=== PATIENT | female | born 1950 | race Caucasian/White ===

== ENCOUNTER 2019-09-30 08:42 | Inpatient (IN) ==
[2019-09-30] MEDS ORDERED: DUONEB (A & A) INH ONE ×2 (09:19)
[2019-09-30] MEDS ORDERED: SOLU-MEDROL IV ONE (09:19)
[2019-09-30 09:23] LABS: BLOOD TYPE ARTERIAL; HCO3-(ACT) 19.2 mmoll (20.0-26.0); METHB 1.3 % (0.0-1.5); O2(CT) 17.9 mL/dL (15.0-23.0); PCO2(98.6) 37 mmHg (35-45); PO2(98.6) 54 mmHg (60-100); SAMPLE BLOOD; SAO2 92.2 % (95.0-100.0); THB 14.3 g/dL (11.5-17.4); pH(98.6) 7.31 (7.35-7.45)
[2019-09-30 09:35] LABS: MODALITY ROOM AIR
[2019-09-30 09:36] LABS: ALLEN TEST NO
[2019-09-30 09:41] LABS: BASO# 0.01 X1000 (0.0-0.2); BASO% 0.1 % (0.0-0.8); HEMATOCRIT 42.5 % (37.0-47.0); HEMOGLOBIN 13.3 g/dL (12.0-16.0); IMM GRAN# 0.01 X1000 (0.0-0.04); IMM GRAN% 0.1 % (0.0-0.5); LYMPH# 0.17 X1000 (1.2-3.4); LYMPH% 2.2 % (20.5-51.1); MCH 27.4 PG (27-31); MCHC 31.3 g/dL (33-37); MCV 87.4 FL (81-99); MONO# 0.48 X1000 (0.11-0.59); MONO% 6.2 % (1.7-9.3); MPV 9.2 FL (7.4-10.4); NEUT# 7.06 X1000 (1.4-6.5); NEUT% 91.4 % (42.2-75.2); PLT 202 X1000 (130-400); RBC 4.86 XMIL (4.2-5.4); RDW 14.5 % (11.5-14.5); WBC 7.73 X1000 (4.8-10.8)
--- NOTE | 2019-09-30 09:46 | PROVIDER DOCUMENTATION ---
HPI-Respiratory General - General Chief Complaint: SEPSIS ALERT - P Stated Complaint: SOB/ COUGH/HEADACHE Time Seen by Provider: 09/30/19 09:01 Source: patient Allergies/Adverse Reactions: Patient Allergies Allergy/AdvReac Type Severity Reaction Status Date / Time Penicillins Allergy HIVES Verified 09/30/19 08:51 Home Medications: Home Medication List Medication Instructions Recorded Confirmed Last Taken Type Naratriptan [Amerge] 2.5 mg PO DAILY 12/09/17 12/09/17 Unknown History Rizatriptan Benzoate [Rizatriptan] 10 mg PO DIRECTED PRN 12/09/17 12/17/17 Unknown History Simvastatin 10 mg PO HS 12/09/17 12/09/17 Unknown History Verapamil HCl [Verapamil ER] 180 mg PO DAILY 12/09/17 12/09/17 Unknown History Topiramate [Topiramate ER] 100 mg PO DAILY 12/10/17 12/10/17 Unknown History Albuterol 2.5MG/Ipratrop 0.5MG 3 ml INH Q6H #120 neb 12/18/17 Unknown Rx [Duoneb (A & A)] CefDINIR [Omnicef] 300 mg PO BID #14 cap 12/18/17 Unknown Rx Nicotine Patch [Nicoderm Patch] 7 mg TD DAILY #21 patch.td24 12/18/17 Unknown Rx Nicotine Patch [Nicoderm Patch] 14 mg TD DAILY #21 patch.td24 12/18/17 Unknown Rx Nicotine Patch [Nicoderm Patch] 21 mg TD DAILY patch.td24 12/18/17 Unknown Rx Prednisone 10 mg PO DAILY #30 tab 12/18/17 Unknown Rx Promethazine HCl/Codeine 5 ml PO Q6-8H PRN PRN #120 ml 09/14/19 Unknown Rx [Promethazine-Codeine Syrup] - History of Present Illness-Resp Nature of Presenting Problem: Patient is a 68 yobf who complains of SOB, wheezing, and a non-productive cough x 2 days. Denies fever or any other complaints. Review of Systems - Adult - REVIEW OF SYSTEMS - ADULT Constitutional: reports: no symptoms reported. denies: chills, fever Eyes: reports: no symptoms reported Ears, Nose, Mouth & Throat: reports: no symptoms reported Cardiovascular: reports: no symptoms reported Respiratory: reports: see HPI Gastrointestinal: reports: no symptoms reported Genitourinary: reports: no symptoms reported Musculoskeletal: reports: no symptoms reported Integumentary: reports: no symptoms reported Neurological: reports: no symptoms reported Psychiatric: reports: no symptoms reported Endocrine: reports: no symptoms reported Hematologic/Lymphatic: reports: no symptoms reported Allergic/Immunologic: reports: no symptoms reported All Other Systems: Reviewed and Negative Past History - Adult - PAST MEDICAL HISTORY-ADULT Review of Records: reports: Old Records Reviewed, Nursing Assessment Review, Medications Reviewed Major Childhood Illnesses: reports: denies history Cardiovascular: reports: HTN, hyperlipidemia Respiratory: reports: COPD Gastrointestinal: reports: denies history Obstetrical/Gynecological: reports: denies history Genitourinary: reports: denies history Musculoskeletal: reports: denies history Neurological: reports: headaches/migraines Psychiatric: reports: denies history Endocrine/Immune: reports: denies history Other Conditions: reports: denies history - PRIOR SURGERIES/PROCEDURES Surgical/Procedure History: reports: reviewed, not pertinent, hysterectomy - IMMUNIZATION STATUS Childhood Immunizations: See Nurse Assessment Flu Vaccine: See Nurse Assessment - FAMILY HISTORY Family History: reviewed, not pertinent - SOCIAL HISTORY Smoking: non-smoker, quit greater than 1 year Physical Exam-General - PHYSICAL EXAM-ADULT Initial Vital Signs Reviewed: Yes - CONSTITUTIONAL General Appearance: alert, mild distress. negative: lethargic, slow to respond - EYES Eyes: PERRL/EOMI, pink conjunctivae. negative: sclera injected, scleral icterus, sunken eyes - HEAD, EARS, NOSE, MOUTH & THROAT HENMT: normocephalic/atraumatic, moist mucous membranes - NECK Neck: full range of motion, supple, normal inspection - RESPIRATORY Respiratory: chest non-tender, respiratory distress (mild), decreased breath sounds (Breath sounds moderately diminished bilaterally with expiratory wheezing noted diffusely), accessory muscle use, wheezing - CARDIOVASCULAR Cardiovascular: normal peripheral pulses, regular rate, rhythm, no edema, no gallop, no JVD, no murmur - GASTROINTESTINAL (ABDOMEN) Abdominal Exam: normal bowel sounds, non tender, soft - MUSCULOSKELETAL Back Exam: normal inspection Extremity: normal range of motion, non-tender, normal inspection - SKIN Integumentary: normal color, warm/dry. negative: cyanosis, diaphoresis, jaundice, mottled, pallor - NEUROLOGIC Neurologic: grossly normal, no motor/sensory deficits - PSYCHIATRIC Psych/Mental Status: normal mood/affect, normal thought content, normal thought process, oriented x 3 Progress - PLAN OF CARE/RESULTS Progress/Plan/Lab Results: Vital Signs - 8 hr 09/30/19 08:45 09/30/19 10:05 09/30/19 10:45 Temperature 97.8 F Pulse Rate 113 H 95 H Respiratory Rate 32 H 20 Blood Pressure 120/63 O2 Sat by Pulse Oximetry 89 L 93 L Laboratory Results - last 24 hr 09/30/19 09/30/19 09/30/19 09:09 09:09 09:09 WBC 7.73 RBC 4.86 Hgb 13.3 Hct 42.5 MCV 87.4 MCH 27.4 MCHC 31.3 L RDW Std Deviation 14.5 Plt Count 202 MPV 9.2 Immature Gran % (Auto) 0.1 Neut % (Auto) 91.4 H Lymph % (Auto) 2.2 L Rock % (Auto) 6.2 Eos % (Auto) 0.0 Baso % (Auto) 0.1 Immature Gran # (Auto) 0.01 Neut # (Auto) 7.06 H Lymph # (Auto) 0.17 L Rock # (Auto) 0.48 Eos # (Auto) 0.00 Baso # (Auto) 0.01 Segmented Neutrophils 91 H Lymphocytes 3 L Monocytes 6 Nucleated RBCs 1 H PT 13.2 INR 0.95 PTT (Actin FS) 28.0 Specimen Type Sample Site pH pCO2 pO2 HCO3 Base Excess Oxyhemoglobin ABG O2 Sat (Calculated) ABG O2 Saturation ABG Carboxyhemoglobin ABG Methemoglobin Steven Test A-a O2 Difference Total Hemoglobin Lactate Blood Gas Modality FiO2 % Sodium 140 Potassium 3.9 Chloride 109 H Carbon Dioxide 18 L Anion Gap 13 BUN 21 Creatinine 0.8 Estimated GFR/1.73 m2 > 60 BUN/Creatinine Ratio 26 Glucose 140 H Calculated Osmolality 285 Calcium 8.5 L Total Bilirubin 0.20 AST 21 ALT 16 Alkaline Phosphatase 109 H Creatine Kinase 211 H Creatine Kinase Index 1.4 CK-MB (CK-2) 3.05 Troponin T Yjo-O-Qqyqburzdny Pept Total Protein 6.7 Albumin 4.5 Globulin 2.0 Albumin/Globulin Ratio 2.0 09/30/19 09/30/19 09/30/19 09:09 09:09 09:13 WBC RBC Hgb Hct MCV MCH MCHC RDW Std Deviation Plt Count MPV Immature Gran % (Auto) Neut % (Auto) Lymph % (Auto) Rock % (Auto) Eos % (Auto) Baso % (Auto) Immature Gran # (Auto) Neut # (Auto) Lymph # (Auto) Rock # (Auto) Eos # (Auto) Baso # (Auto) Segmented Neutrophils Lymphocytes Monocytes Nucleated RBCs PT INR PTT (Actin FS) Specimen Type ARTERIAL Sample Site R BRACHIAL pH 7.31 L pCO2 37 pO2 54 L HCO3 19.2 L Base Excess -7.0 L Oxyhemoglobin 89.0 L* ABG O2 Sat (Calculated) 17.9 ABG O2 Saturation 92.2 L ABG Carboxyhemoglobin 2.10 ABG Methemoglobin 1.3 Steven Test NO A-a O2 Difference 49.0 Total Hemoglobin 14.3 Lactate 1.00 Blood Gas Modality ROOM AIR FiO2 % 21.0 Sodium Potassium Chloride Carbon Dioxide Anion Gap BUN Creatinine Estimated GFR/1.73 m2 BUN/Creatinine Ratio Glucose Calculated Osmolality Calcium Total Bilirubin AST ALT Alkaline Phosphatase Creatine Kinase Creatine Kinase Index CK-MB (CK-2) Troponin T < 0.010 Cax-O-Qnloquqhxph Pept 213 Total Protein Albumin Globulin Albumin/Globulin Ratio Orders Category Date Time Status Cardiac Monitoring DIRECTED Care 09/30/19 08:52 Active IV Insertion ORDERED Care 09/30/19 08:52 Completed Notify MD of + Sepsis Screen NOW Care 09/30/19 08:52 Active Notify Physician As Ordered Care 09/30/19 08:52 Active CHEST-1 VIEW [RAD] Stat Exams 09/30/19 08:52 Completed ABG [RESP] Routine Lab 09/30/19 09:13 Completed BLOOD CULTURE [BLDCUL] Stat Lab 09/30/19 09:15 Ordered BNP [PRO B-NATRIURETIC PEPTIDE] Stat Lab 09/30/19 09:09 Completed CBC WITH DIFF [HEME] Stat Lab 09/30/19 09:09 Completed CK PROFILE [SP CHEM] Stat Lab 09/30/19 09:09 Completed COMPREHENSIVE METABOLIC PANEL [CHEM] Stat Lab 09/30/19 09:09 Completed Flu [INFLUENZA SCREEN PL] Stat Lab 09/30/19 12:20 Uncollected LACTATE, PLASMA [CHEM] Lab 09/30/19 12:00 Uncollected LACTATE, PLASMA [CHEM] Lab 09/30/19 15:00 Uncollected LACTATE, PLASMA [CHEM] Q3H Lab 09/30/19 09:15 Ordered PROTIME WITH INR [COAG] Stat Lab 09/30/19 09:09 Completed PTT [COAG] Stat Lab 09/30/19 09:09 Completed TROPONIN T Stat Lab 09/30/19 09:09 Completed Albuterol 2.5MG/Ipratrop 0.5MG [Duoneb (A & A)] Med 09/30/19 09:19 Discontinued 3 ml INH NOW ONE Albuterol 2.5MG/Ipratrop 0.5MG [Duoneb (A & A)] Med 09/30/19 09:19 Discont inued 3 ml INH NOW ONE Furosemide [Lasix] Med 09/30/19 10:35 Discontinued 40 mg IV NOW ONE Methylprednisolone Sod Succ [Solu-Medrol] Med 09/30/19 09:19 Discontinued 125 mg IV NOW ONE Ondansetron [Zofran] Med 09/30/19 10:04 Discontinued 4 mg IV NOW ONE Aerosol Treatments Routine Oth 09/30/19 09:19 Completed Aerosol Treatments Routine Oth 09/30/19 09:19 Completed Aerosol Treatments Stat Oth 09/30/19 09:19 Completed Aerosol Treatments Stat Oth 09/30/19 09:19 Completed Oxygen Device Stat Oth 09/30/19 08:52 Active EKG [EKG] Stat Ther 09/30/19 08:52 Draft Result Diagrams: 09/30/19 09:09 09/30/19 09:09 - REASSESSMENT Reassessment #1 Time Reassessed: 12:13 Status: other (Pt states she is feeling mildly better, removed O2 and sat dropped to 88% on room air. Admitting paged. Pt in agreement with admission plan.) - XRAY 1 XRAY Study: Chest ([facility] - [address] , [address], [place] [address] [facility] - [address] [place] [address] Department of Imaging Patient: BERTRAND PAREDES Date: 09/30/19MR#: [id number] : 1ADM Status: REG [facility]#: [id number] Age/Sex: 68/FRoom/Bed: Loc: P.ED Ordering Physician: Sherman Canales MD Family Physician: Marisa Black MD Reason for Procedure: sob ___ Signed EXAM: CHEST-1 VIEW HISTORY: sob TECHNIQUE: Single view COMPARISON: 09/14/2019 FINDINGS: The lungs are hyperexpanded. The heart is not enlarged. The vessels are mildly distended. There are no infiltrates. No effusion identified. There are scattered granuloma. Moderate scoliosis. IMPR ESSION: Emphysema with mild pulmonary edema Electronically signed by Kelvin Santiago 09/30/2019 9:58 AM 09/30/19 0958 Interpreting Physician: Kelvin Santiago MD Dictated Date/Time: 09/30/19 0957 cc: Sherman Canales MD; Marisa Black MD) - CONSULTS/PCP/HOSPITALIST Notification #1 *Consult/PCP/Hospitalist*: Dr. Bennett Time Discussed: 12:22 Reason/Comments: admission- COPD exacerbation Consult Disposition: Admit Departure - Departure Date of Disposition Decision: 09/30/19 Time of Disposition Decision: 12:23 DIAGNOSIS: COPD exacerbation Disposition: ADMITTED INPATIENT 09 Certified Medical Emergency: Emergent Condition: Stable Referrals and Follow-Ups: Marisa lBack MD [Primary Care Provider] - - Critical Care Note This patient required my direct & personal management of CC.: No Attestation - Physician/ GAVIN Attestation Patient care was provided by Advanced Practice Provider:: Yes Advanced Practice Provider:: Bala Falk Advanced Practice Provider documentation review:: The Mid-level provider documentation, treatment plan and medical decision making was reviewed by the physician who agrees with all treatment and medical decision making by the MLP. The physician spent face to face time with patient:: No Advanced Practice Provider documentation review:: Supervising physician onsite and consulted in the evaluation and care of this patient. The physician did not have a face to face encounter with the patient.
--- NOTE | 2019-09-30 09:54 | EKG Report ---
Test Performed on : 09/30/2019 09:01:08 AM Test Reason : sob Blood Pressure : / mmHG Vent. Rate : 103 BPM Atrial Rate : 103 BPM P-R Int : 140 ms QRS Dur : 076 ms QT Int : 332 ms P-R-T Axes : 076 027 254 degrees QTc Int : 434 ms Sinus tachycardia. Low voltage QRS ST & T wave abnormality, consider inferolateral ischemia Abnormal ECG When compared with ECG of 09-DEC-2017 12:20, Minimal criteria for Inferior infarct are no longer present QT has shortened Unconfirmed Result
[2019-09-30 09:57] LABS: AGAP 13; ALBUMIN 4.5 g/dL (3.5-5.0); ALKALINE PHOSPHATASE 109 U/L (32-104); BUN 21 mg/dL (8-22); CALCIUM 8.5 mg/dL (8.8-10.2); CHLORIDE 109 mmol/L (98-107); COSMO 285; CREATININE 0.8 mg/dL (0.5-0.9); ESTIMATED GFR > 60; GLUCOSE 140 mg/dL (70-104); GOT 21 U/L (10-30); GPT 16 U/L (10-36); POTASSIUM 3.9 mmol/L (3.5-5.1); SODIUM 140 mmol/L (136-145); TCO2 18 mmol/L (25-35); TOTAL PROTEIN 6.7 g/dL (6.3-8.3)
--- NOTE | 2019-09-30 09:58 | ED EKG INTERP ---
This chart was entered by Yanet Cruz Scribe, acting as scribe for Sherman Canales MD. EKG Interpretation - EKG Time of EKG reading by physician:: 09:01 EKG Read and Signed by:: Sherman Canales EKG Interpretation (*Must complete 3 of following elements*): Abnormal Rate: 103 Rhythm: sinus tachycardia [place]: normal QRS: other (low voltage qrs) ME Interval: normal Comments: st and t wave abnormality, consider inferolatera ischemia Attestation - Physician/ GAVIN Attestation Patient care was provided by Advanced Practice Provider:: Yes Advanced Practice Provider documentation review:: The Mid-level provider documentation, treatment plan and medical decision making was reviewed by the physician who agrees with all treatment and medical decision making by the MLP. The physician spent face to face time with patient:: No Advanced Practice Provider documentation review:: Supervising physician onsite and consulted in the evaluation and care of this patient. The physician did not have a face to face encounter with the patient. This chart was documented by the indicated scribe, (Yanet Cruz Scribe) and accurately reflects the services I performed and decisions made by me, Sherman Canales MD, as attested by the provider's signature.
[2019-09-30 09:59] LABS: CK PROFILE 211 U/L (24-173)
--- NOTE | 2019-09-30 10:00 | Diag Imaging Result Doc PS360 ---
EXAM: CHEST-1 VIEW HISTORY: sob TECHNIQUE: Single view COMPARISON: 09/14/2019 FINDINGS: The lungs are hyperexpanded. The heart is not enlarged. The vessels are mildly distended. There are no infiltrates. No effusion identified. There are scattered granuloma. Moderate scoliosis. IMPRESSION: Emphysema with mild pulmonary edema Electronically signed by Kelvin Santiago 09/30/2019 9:58 AM
[2019-09-30] MEDS ORDERED: ZOFRAN IV ONE (10:04)
[2019-09-30 10:06] LABS: INR 0.95; PROTIME 13.2 Seconds (11.0-16.0)
[2019-09-30 10:33] LABS: CK INDEX 1.4 (0.0-2.5); CK-MB 3.05 ng/mL (0.0-5.0)
[2019-09-30] MEDS ORDERED: LASIX IV ONE (10:35)
[2019-09-30 11:08] LABS: LYMPHS 3 % (21-51); MONO 6 % (1-9); NRBC 1 % (0-0); SEGS 91 % (42-75)
[2019-09-30] MEDS ORDERED: TYLENOL PO PRN (12:23)
[2019-09-30] MEDS ORDERED: ZOFRAN IV PRN ×2 (12:23→13:45)
[2019-09-30 12:53] LABS: INFLUENZA A POSITIVE (NEGATIVE); INFLUENZA B NEGATIVE (NEGATIVE)
[2019-09-30] MEDS: ZITHROMAX 500 MG/NS 500 MG/250 ML IVPB IV SCH (13:28)
--- NOTE | 2019-09-30 13:44 | HISTORY AND PHYSICAL ---
PRIMARY CARE PHYSICIAN: Dr. Marisa Black. CHIEF COMPLAINT: Shortness of breath, wheezing, and a nonproductive cough for the past 2 days that has progressively worsened. HISTORY OF PRESENTING ILLNESS: This is a 68-year-old, -[place] female who presents to [facility] ER with a 2-day history of shortness of breath, wheezing, and a nonproductive cough. When she arrived, she had an O2 saturation of 89% on room air. ABG showed a pH of 7.31, pCO2 of 37, PO2 of 54, bicarb 19.2, and this was on room air. Her influenza A was positive. Influenza B was negative. Chest x-ray showed emphysema with mild pulmonary edema. EKG showed sinus tachycardia at 103. She will be admitted for further evaluation and treatment. PAST MEDICAL HISTORY: COPD, asthma, hypertension, and migraine. PAST SURGICAL HISTORY: Hysterectomy. FAMILY HISTORY: Reviewed and noncontributory. SOCIAL HISTORY: She currently lives with family. Quit smoking 2 years ago but was a pack a day smoker for 40+ years at that point. Denied any alcohol or illicit drug use. ALLERGIES: Penicillin. HOME MEDICATIONS: Will need to be updated and confirmed, and restarted when appropriate. We will place an order for nursing to update and confirm home medications. LABORATORY DATA: Showed a white blood cell count of 7.73, hemoglobin 13.3, hematocrit 42.5, platelets 202,000. PT and INR of 13.2 and 0.95. ABG with a pH of 7.31, pCO2 of 37, PO2 of 54, bicarb 19.2, and this was on room air. Sodium 140, potassium 3.9, chloride 109, CO2 of 18, BUN of 21, creatinine 0.8, glucose 140. Creatine kinase of 211, CK-MB 3.05, troponin was negative at 0.010. ProBNP of 213. Influenza A was positive. Influenza B was negative. Chest x-ray showed emphysema with mild pulmonary edema. EKG showed sinus tachycardia at 103. REVIEW OF SYSTEMS: She denied any fever, chills, blurred vision, dizziness, chest pain. She has had a nonproductive cough, shortness of breath, wheezing. Denied any abdominal pain, constipation, diarrhea, or burning or hurting with urination. PHYSICAL EXAMINATION: VITAL SIGNS: On arrival, she had a temperature of 97.8 degrees, pulse 113, respirations 32, blood pressure 120/63, saturating 89% on room air. Currently saturating 93% on 2 L. GENERAL: This is a 68-year-old, -[place] female who is sitting on the side of the bed and answers questions appropriately. HEENT: Normocephalic, atraumatic. Normal ENT inspection. Oropharynx and nares are clear. Eyes: Pupils are equal, round, and reactive to light and accommodation. Extraocular movements are intact. NECK: Normal inspection. Normal range of motion. LUNGS: With decreased breath sounds and some minimal expiratory wheezing throughout entire posterior lung corral. Equal lung expansion and chest wall movement noted. O2 via nasal cannula currently in use. HEART: Regular rate and rhythm. No murmurs, rubs, or gallops. ABDOMEN: Soft, nontender, nondistended. Bowel sounds are present x4 quadrants. MUSCULOSKELETAL: She had 5/5 strength x4 extremities. NEUROLOGICAL: The cranial nerves 2-12 appear grossly intact. ASSESSMENT: 1. An acute chronic obstructive pulmonary disease exacerbation. 2. Acute respiratory failure. 3. Influenza A positive. PLAN: She will be admitted to the medical unit. Placed on telemetry, O2 per protocol. Healthy heart diet. We will obtain a sputum culture. Blood cultures x2 are pending. She will be on Solu- Medrol 40 mg IV q.12, DuoNebs q.4 hours, azithromycin 500 mg IV q.24, Tamiflu 75 mg p.o. b.i.d., healthy heart diet. Neurologic checks q.4 hours x24 hours. Update and confirm home medications. Further orders after seen by attending. Dictated by SUZANNE Ireland for Denton Bennett MD cc: SUZANNE Ireland MD Bernice Swain, MD
[2019-09-30] MEDS: TAMIFLU PO SCH ×2 (14:31→20:39)
[2019-09-30] MEDS: DUONEB (A & A) INH SCH ×3 (15:27→23:46)
[2019-09-30] MEDS ORDERED: DUONEB (A & A) INH SCH (15:30)
[2019-09-30] MEDS ORDERED: MAXALT MLT PO PRN (16:45)
--- NOTE | 2019-09-30 16:45 | EKG Report ---
Test Performed on : 09/30/2019 4:17:54 PM Test Reason : TELE CHANGE Blood Pressure : / mmHG Vent. Rate : 097 BPM Atrial Rate : 097 BPM P-R Int : 146 ms QRS Dur : 078 ms QT Int : 372 ms P-R-T Axes : 086 078 261 degrees QTc Int : 472 ms Normal sinus rhythm. ST & T wave abnormality, consider inferior ischemia ST & T wave abnormality, consider anterolateral ischemia Prolonged QT Abnormal ECG When compared with ECG of 30-SEP-2019 16:16, (Unconfirmed) fusion complexes are no longer present QT has shortened Confirmed by Orlando Talley MD ([id number]) on 10/07/2019 1:49:59 AM
[2019-09-30] MEDS: SOLU-MEDROL IV SCH (17:31)
--- NOTE | 2019-09-30 18:56 | PROGRESS NOTE ---
DATE: 09/30/2019 SUBJECTIVE: Patient has no major complaints. Blood pressure is 112/60, heart rate 87. This is a lady coming in for wheezing and shortness of breath. She was found to have a COPD exacerbation and she also is flu A positive. ASSESSMENT AND PLAN: The patient will be admitted for treatment, steroids, antibiotics, antivirals, and we will continue to follow. [id number] encounter note with Anabella Garcia. cc: Denton Bennett MD
[2019-09-30] MEDS: ZOCOR PO SCH (20:39)
[2019-09-30] MEDS ORDERED: SOLU-MEDROL IV SCH (21:00)
[2019-10-01] MEDS: ZITHROMAX 500 MG/NS 500 MG/250 ML IVPB IV SCH (01:30)
[2019-10-01] MEDS: DUONEB (A & A) INH SCH ×6 (04:00→23:43)
[2019-10-01] MEDS: SOLU-MEDROL IV SCH ×3 (04:08→19:03)
[2019-10-01 06:12] LABS: HEMATOCRIT 40.1 % (37.0-47.0); HEMOGLOBIN 12.8 g/dL (12.0-16.0); LYMPH# 0.57 X1000 (1.2-3.4); LYMPH% 9.5 % (20.5-51.1); MCH 27.6 PG (27-31); MCHC 31.9 g/dL (33-37); MCV 86.4 FL (81-99); MONO# 0.33 X1000 (0.11-0.59); MONO% 5.5 % (1.7-9.3); MPV 9.3 FL (7.4-10.4); NEUT# 5.07 X1000 (1.4-6.5); PLT 193 X1000 (130-400); RBC 4.64 XMIL (4.2-5.4); RDW 14.3 % (11.5-14.5); WBC 5.97 X1000 (4.8-10.8)
[2019-10-01 06:56] LABS: CALCIUM 8.2 mg/dL (8.8-10.2); CREATININE 1.1 mg/dL (0.5-0.9); POTASSIUM 3.2 mmol/L (3.5-5.1); TOTAL BILIRUBIN 0.2 mg/dL (0.20-1.00); TOTAL PROTEIN 6.7 g/dL (6.3-8.3)
[2019-10-01] MEDS: TAMIFLU PO SCH ×2 (10:00→21:00)
[2019-10-01] MEDS: NON-FORMULARY MED PO SCH (10:00)
[2019-10-01] MEDS: ISOPTIN SR PO SCH (10:00)
[2019-10-01] MEDS: TYLENOL PO PRN (10:01)
[2019-10-01] MEDS ORDERED: NS 1,000 ML IV ONE (10:34)
--- NOTE | 2019-10-01 12:19 | PROGRESS NOTE ---
DATE: 10/01/2019 SUBJECTIVE: Patient has no major complaints. OBJECTIVE: Vital signs: Blood pressure 104/55, heart rate of 90, respiratory rate 20, temperature 98.8 degrees, 95% on 2 L. Cardiovascular: Regular rate and rhythm. Pulmonary: Bilateral breath sounds clear to auscultation. Her wheezing has overall improved. Gastrointestinal: Soft, nontender, nondistended. Bowel sounds were positive. LABORATORY DATA: White count is 5, hemoglobin and hematocrit 12 and 40, platelets 193,000. Sodium 132, potassium 3.2, creatinine 1.1. Flu A was positive. PROBLEM LIST: 1. Chronic obstructive pulmonary disease exacerbation. We will continue breathing treatments. I am going to cut down on her steroids and we will monitor her. Continue breathing treatments. 2. Influenza A. She is currently on Tamiflu, will continue for a total of 5 days. 3. Hypokalemia. We will supplement and follow. DISPOSITION: I anticipate discharge hopefully tomorrow, kind of see how she does. cc: Denton Bennett MD
[2019-10-01] MEDS: ROCEPHIN 1 GM in NS 50 ML IV SCH (16:26)
[2019-10-01] MEDS ORDERED: VANCOMYCIN IV PER PHARMACY MISC SCH (19:45)
[2019-10-01] MEDS ORDERED: VANCOMYCIN 1 GM/NS 1 GM/250 ML IVPB IV ONE (21:00)
[2019-10-01] MEDS: ZOCOR PO SCH (21:00)
[2019-10-01] MEDS ORDERED: VANCOMYCIN 500 MG/NS 500 MG/100 ML IVPB IV ONE (22:00)
[2019-10-02] MEDS: SOLU-MEDROL IV SCH ×3 (02:18→14:38)
[2019-10-02] MEDS: DUONEB (A & A) INH SCH ×3 (03:02→11:16)
[2019-10-02] MEDS: TYLENOL PO PRN (04:33)
[2019-10-02 06:35] LABS: EOS# 0.05 X1000 (0.0-0.7); EOS% 0.4 % (0.0-10.0); HEMATOCRIT 37.1 % (37.0-47.0); HEMOGLOBIN 11.8 g/dL (12.0-16.0); IMM GRAN# 0.03 X1000 (0.0-0.04); IMM GRAN% 0.2 % (0.0-0.5); LYMPH# 0.66 X1000 (1.2-3.4); LYMPH% 5.2 % (20.5-51.1); MCH 27.2 PG (27-31); MCHC 31.8 g/dL (33-37); MCV 85.5 FL (81-99); MONO# 0.74 X1000 (0.11-0.59); MONO% 5.8 % (1.7-9.3); MPV 9.4 FL (7.4-10.4); NEUT# 11.24 X1000 (1.4-6.5); NEUT% 88.4 % (42.2-75.2); PLT 202 X1000 (130-400); RBC 4.34 XMIL (4.2-5.4); RDW 14.1 % (11.5-14.5); WBC 12.72 X1000 (4.8-10.8)
[2019-10-02 06:36] LABS: AGAP 12; BUN 25 mg/dL (8-22); CHLORIDE 105 mmol/L (98-107); COSMO 280; CREATININE 0.8 mg/dL (0.5-0.9); ESTIMATED GFR > 60; GLUCOSE 139 mg/dL (70-104); POTASSIUM 3.3 mmol/L (3.5-5.1); SODIUM 137 mmol/L (136-145); TCO2 20 mmol/L (25-35)
[2019-10-02 07:18] LABS: LYMPHS 4 % (21-51); MONO 4 % (1-9); SEGS 92 % (42-75)
[2019-10-02 07:19] LABS: BURR CELLS 1+; OVALOCYTES 1+; POIKILOCYTOSIS 2+; SCHISTOCYTES OCCASIONAL
[2019-10-02] MEDS ORDERED: KLOR-CON PO ONE (09:19)
[2019-10-02] MEDS: TAMIFLU PO SCH ×2 (10:00→21:51)
[2019-10-02] MEDS: ISOPTIN SR PO SCH (10:00)
[2019-10-02] MEDS: NON-FORMULARY MED PO SCH (11:18)
--- NOTE | 2019-10-02 11:19 | PROGRESS NOTE ---
DATE: 10/02/2019 SUBJECTIVE: The patient has no major complaints. OBJECTIVE: Blood pressure 96/50, heart rate 74, respiratory rate 20, temperature 98.8 degrees, 93% on 2 L.Cardiovascular: Regular rate and rhythm. Pulmonary: Bilateral breath sounds, clear to auscultation. GI: Soft, nontender, nondistended. Bowel sounds are positive. LABORATORY DATA: White count 12, hemoglobin 11, hematocrit 37, platelets of 202,000, potassium is 3.3. PROBLEM LIST: 1. Acute chronic obstructive pulmonary disease exacerbation. We will continue breathing treatments. I am going to decrease her steroids because she is having a lot of bad dreams and agitation associated with that. 2. Influenza A. We will continue Tamiflu and follow. Her mild leukocytosis is probably associated with steroids. She is still hypoxic, so she is going to need some more treatments potentially. We will continue to monitor closely. We have advised on tobacco cessation. We will continue to follow. 3. Coag-negative bacteremia. This may be a contaminant. I am just going to follow up because both cultures are positive, one was initially read as a gram-negative rasheed, but now it has been a GPC, and the other one is a coagulase-negative staph. cc: Denton Bennett MD
[2019-10-02] MEDS ORDERED: DUONEB (A & A) INH PRN (11:41)
[2019-10-02] MEDS ORDERED: ROBITUSSIN-AC PO PRN (11:42)
[2019-10-02] MEDS: ROCEPHIN 1 GM in NS 50 ML IV SCH (14:38)
[2019-10-02] MEDS ORDERED: DUONEB (A & A) INH SCH (15:30)
--- NOTE | 2019-10-02 17:24 | EKG Report ---
Test Performed on : 10/02/2019 5:00:16 PM Test Reason : HR 150s and morphology change on telemetry Blood Pressure : / mmHG Vent. Rate : 082 BPM Atrial Rate : 082 BPM P-R Int : 134 ms QRS Dur : 078 ms QT Int : 332 ms P-R-T Axes : 082 018 253 degrees QTc Int : 387 ms Normal sinus rhythm. ST & T wave abnormality, consider inferolateral ischemia Abnormal ECG When compared with ECG of 30-SEP-2019 16:17, (Unconfirmed) Nonspecific T wave abnormality has replaced inverted T waves in Anterior leads QT has shortened Confirmed by Orlando Talley MD ([id number]) on 10/07/2019 1:48:29 AM
[2019-10-02] MEDS: CARDIZEM PO SCH ×3 (17:32→23:00)
[2019-10-02 17:50] LABS: MAGNESIUM 2.2 mg/dL (1.5-2.7); POTASSIUM 3.5 mmol/L (3.5-5.1)
[2019-10-02] MEDS: XOPENEX NEB INH SCH (21:01)
[2019-10-02] MEDS: ATROVENT NEB INH SCH (21:01)
[2019-10-02] MEDS: ZOCOR PO SCH (21:51)
[2019-10-02] MEDS: RESTORIL PO PRN (22:00)
[2019-10-03] MEDS: SOLU-MEDROL IV SCH ×2 (01:10→14:36)
[2019-10-03] MEDS: CARDIZEM PO SCH ×4 (05:48→22:09)
[2019-10-03 05:54] LABS: HEMATOCRIT 39.3 % (37.0-47.0); HEMOGLOBIN 12.5 g/dL (12.0-16.0); IMM GRAN# 0.04 X1000 (0.0-0.04); IMM GRAN% 0.3 % (0.0-0.5); LYMPH% 6.4 % (20.5-51.1); MCH 27.4 PG (27-31); MCHC 31.8 g/dL (33-37); MONO# 0.52 X1000 (0.11-0.59); MONO% 3.7 % (1.7-9.3); MPV 9.3 FL (7.4-10.4); NEUT# 12.71 X1000 (1.4-6.5); NEUT% 89.6 % (42.2-75.2); PLT 225 X1000 (130-400); RBC 4.57 XMIL (4.2-5.4); RDW 14.5 % (11.5-14.5); WBC 14.17 X1000 (4.8-10.8)
[2019-10-03 06:10] LABS: AGAP 10; BUN 24 mg/dL (8-22); CALCIUM 8.2 mg/dL (8.8-10.2); CHLORIDE 108 mmol/L (98-107); COSMO 285; CREATININE 0.8 mg/dL (0.5-0.9); ESTIMATED GFR > 60; GLUCOSE 119 mg/dL (70-104); POTASSIUM 3.9 mmol/L (3.5-5.1); SODIUM 140 mmol/L (136-145); TCO2 22 mmol/L (25-35)
[2019-10-03 06:34] LABS: BANDS 6 % (0-1); LYMPHS 5 % (21-51); MONO 1 % (1-9); NRBC 1 % (0-0); SEGS 88 % (42-75)
[2019-10-03 06:35] LABS: POIKILOCYTOSIS OCCASIONAL; POLYCHROM OCCASIONAL; VACUOLES OCCASIONAL
[2019-10-03 06:36] LABS: BURR CELLS OCCASIONAL; OVALOCYTES OCCASIONAL; SCHISTOCYTES OCCASIONAL
[2019-10-03] MEDS ORDERED: VANCOMYCIN 1,200 MG in NS 250 ML IV SCH (09:00)
[2019-10-03] MEDS: ISOPTIN SR PO SCH (10:23)
[2019-10-03] MEDS: NON-FORMULARY MED PO SCH (10:23)
[2019-10-03] MEDS: TAMIFLU PO SCH ×2 (10:23→22:09)
[2019-10-03] MEDS: ATROVENT NEB INH SCH ×3 (10:39→21:15)
[2019-10-03] MEDS: XOPENEX NEB INH SCH ×3 (10:39→21:15)
[2019-10-03] MEDS ORDERED: SOLU-MEDROL IV ONE (13:58)
--- NOTE | 2019-10-03 14:16 | PROGRESS NOTE ---
DATE: 10/03/2019 SUBJECTIVE: She is doing okay. She says she feels okay today, but not terrible but not great either. OBJECTIVE: Blood pressure is 154/87, heart rate of 52, respiratory rate of 22, temperature is 97.5 degrees.Cardiovascular: Regular rate and rhythm. Pulmonary: Bilateral breath sounds clear to auscultation. She has rhonchi and wheezing. GI: Soft, nontender, nondistended. Bowel sounds are positive. LABORATORY DATA: White count 14, hemoglobin and hematocrit 12 and 39 platelets 225,000. Basic was normal. PROBLEM LIST: 1. Acute chronic obstructive pulmonary disease exacerbation. We will continue treatments. I am not decreasing her steroids further. She has more wheezing. I am going to add a dose today in fact. 2. Influenza A. We will continue Tamiflu and follow. 3. Coag-negative bacteremia and a strep mitis. I have discussed this with Dr. Brothers. He feels like likely this is a contaminant. We will repeat her blood cultures. If those are negative, we can probably transition her to oral antibiotics. DISPOSITION: Pending her clinical status, possibly home tomorrow. We will continue to follow. cc: Denton Bennett MD
[2019-10-03] MEDS: ROCEPHIN 1 GM in NS 50 ML IV SCH (14:38)
[2019-10-03] MEDS: RESTORIL PO PRN (22:09)
[2019-10-03] MEDS: ZOCOR PO SCH (22:09)
[2019-10-04] MEDS: SOLU-MEDROL IV SCH ×2 (03:04→15:36)
[2019-10-04] MEDS: CARDIZEM PO SCH ×2 (05:22→11:16)
[2019-10-04 06:22] LABS: HEMATOCRIT 38.2 % (37.0-47.0); HEMOGLOBIN 12.2 g/dL (12.0-16.0); IMM GRAN# 0.05 X1000 (0.0-0.04); IMM GRAN% 0.6 % (0.0-0.5); LYMPH# 0.83 X1000 (1.2-3.4); LYMPH% 9.3 % (20.5-51.1); MCH 27.3 PG (27-31); MCHC 31.9 g/dL (33-37); MCV 85.5 FL (81-99); MONO# 0.49 X1000 (0.11-0.59); MONO% 5.5 % (1.7-9.3); MPV 9.4 FL (7.4-10.4); NEUT# 7.54 X1000 (1.4-6.5); NEUT% 84.6 % (42.2-75.2); PLT 232 X1000 (130-400); RBC 4.47 XMIL (4.2-5.4); RDW 14.5 % (11.5-14.5); WBC 8.91 X1000 (4.8-10.8)
[2019-10-04 06:41] LABS: AGAP 11; BUN 26 mg/dL (8-22); CALCIUM 8.2 mg/dL (8.8-10.2); CHLORIDE 109 mmol/L (98-107); COSMO 287; CREATININE 0.7 mg/dL (0.5-0.9); ESTIMATED GFR > 60; GLUCOSE 120 mg/dL (70-104); POTASSIUM 3.9 mmol/L (3.5-5.1); SODIUM 141 mmol/L (136-145); TCO2 21 mmol/L (25-35)
[2019-10-04] MEDS: ISOPTIN SR PO SCH ×2 (07:57→08:06)
[2019-10-04] MEDS: TAMIFLU PO SCH ×3 (07:57→22:13)
[2019-10-04] MEDS: NON-FORMULARY MED PO SCH ×2 (07:57→08:06)
[2019-10-04] MEDS: ATROVENT NEB INH SCH ×3 (10:12→22:25)
[2019-10-04] MEDS: XOPENEX NEB INH SCH ×3 (10:12→22:25)
--- NOTE | 2019-10-04 15:33 | PROGRESS NOTE ---
DATE: 10/04/2019 SUBJECTIVE: The patient has no major complaints. OBJECTIVE: Vital Signs: Blood pressure 119/56, heart rate 89, respiratory 16, temperature 98.6 degrees. 93% on room air. Cardiovascular: Regular rate and rhythm. Pulmonary: Bilateral breath sounds. Clear to auscultation. Gastrointestinal: Abdomen soft, nontender, nondistended. Bowel sounds are positive. LABORATORY DATA: White count is 8, hemoglobin and hematocrit 12 and 38, platelets 232,000, chloride and bicarbonate are 109 and 21. PROBLEM LIST: 1. Acute chronic obstructive pulmonary disease exacerbation. We will continue breathing treatments, steroids and continue to follow. 2. Influenza A. I think today or tomorrow the last day of Tamiflu. 3. Coag-negative Staphylococcus bacteremia, streptococcus mitis bacteremia. I discussed the case with Dr. Brothers. If repeat blood cultures are negative, it is likely a contaminant so we are not planning to do IV antibiotics. DISPOSITION: I think if he is stable, he should be home tomorrow if his blood cultures are negative. cc: Denton Bennett MD
[2019-10-04] MEDS: ROCEPHIN 1 GM in NS 50 ML IV SCH (15:36)
--- NOTE | 2019-10-04 20:01 | ECHO REPORT ---
ORDER DATE: 10/04/2019 INDICATION FOR STUDY: Supraventricular tachycardia. The patient has the flu. M-MODE MEASUREMENTS: Left ventricle end diastole: 4.3. Left ventricle end systole: 2.8. Posterior wall: 0.8. Interventricular septum: 0.7. Left atrium: 3.2. Aortic diameter: 3.3. SUMMARY OF 2-DIMENSIONAL IMAGIN. The left ventricular function appears to be normal. Ejection fraction is somewhere in the neighborhood of 65%. No wall motion abnormality is noted. The right-sided chambers appear to be slightly prominent. 2. The mitral valve looks normal. Color flow mapping indicates a mild degree of regurgitation. 3. Pulse wave Doppler of mitral inflow is normal. 4. Tissue Doppler of septal and lateral mitral annulus averages 11 cm. 5. Pulmonary venous flow is normal. There is no diastolic dysfunction. 6. The aortic valve looks grossly normal. Color flow mapping unremarkable. 7. The pulmonic valve looks grossly normal. The inferior vena cava is not dilated. 8. The tricuspid valve shows a mild degree of regurgitation. 9. Pulmonary pressure is estimated at 26 mmHg. 10.There is no pericardial effusion, mass, and no thrombus. 11.The right-sided chambers did not appear to be particularly enlarged. Clinical correlation is recommended. cc: MD Denton Mandel MD MTDD
[2019-10-04] MEDS: RESTORIL PO PRN (22:13)
[2019-10-04] MEDS: ZOCOR PO SCH (22:13)
[2019-10-05] MEDS: SOLU-MEDROL IV SCH (01:54)
[2019-10-05] MEDS ORDERED: ISOPTIN SR PO SCH (09:00)
[2019-10-05] MEDS: TAMIFLU PO SCH (09:28)
[2019-10-05] MEDS: NON-FORMULARY MED PO SCH (09:28)
[2019-10-05] MEDS: XOPENEX NEB INH SCH (10:51)
[2019-10-05] MEDS: ATROVENT NEB INH SCH (10:51)
[2019-10-05 11:59] VITALS: BP 112/58
--- NOTE | 2019-10-06 12:40 | DISCHARGE SUMMARY ---
ADMISSION DATE: 09/30/2019 DISCHARGE DATE: 10/05/2019 DISCHARGE DIAGNOSES: 1. Chronic obstructive pulmonary disease acute exacerbation, resolved. 2. Influenza A positive. 3. Acute hypoxemic respiratory failure. 4. Supraventricular tachycardia. 5. On 09/30/2019, positive blood cultures with coag-negative Staphylococcus, Strep mitis/strep oralis with repeat cultures 10/03/2019 no growth after 48 hours x2 cultures. DIAGNOSTICS: 1. Chest x-ray revealed emphysema with mild pulmonary edema. 2. Echocardiogram revealed left ventricular function appears normal with ejection fraction of 65%. No motion wall abnormality is noted. No pericardial effusion mass, no thrombus, no diastolic dysfunction. HOSPITAL COURSE: Ms. Arboleda presented to the emergency room complaining of shortness of breath, wheezing and a nonproductive cough over the prior 48 hours. She was found to be in acute hypoxemic respiratory failure with an acute COPD exacerbation. She was admitted with telemetry and O2 protocol with steroids to taper. DuoNeb q.4 hours. She was found to be influenza A positive for which she was treated with 5 days of Tamiflu. Electrolytes were trended and repleted as appropriate. She was noted to have some episodes of SVT for which she was given Cardizem. This did resolve, and the echocardiogram followed as stated above. Blood cultures obtained on 09/30 revealed coag-negative Staphylococcus with strep mitis and strep oralis. Dr. Bennett discussed this with Dr. Brothers. She was initially treated with what looks like Zithromax and Rocephin. Once cultures returned, she was started on vancomycin dosed per pharmacy as her repeat cultures returned no growth after 48 hours. Vancomycin was stopped. She was discharged on Omnicef and a Medrol Dosepak in stable condition. DISCHARGE VITAL SIGNS: Blood pressure 112/58 with a heart rate of 76, respirations 18, temperature 98.2 degrees with O2 room air saturations 95 to 97 percent. DISCHARGE PHYSICAL EXAMINATION: Cardiovascular: Regular rate and rhythm. S1 and S2 appreciated. She had no lower extremity edema with peripheral pulses palpable x4 extremities. Pulmonary: Breath sounds are clear with no increased work of breathing noted. Gastrointestinal: Abdomen is soft, nontender, and nondistended. Bowel sounds in all 4 quadrants. Neurologic: She is alert and oriented x3. Cranial nerves 2-12 grossly intact. Skin: Warm and dry. DISCHARGE MEDICATIONS: 1. ProAir inhaler 2 inhalations 3 times a day. 2. Omnicef 300 mg p.o. b.i.d. x5 days. 3. Medrol Dosepak as directed. 4. Rizatriptan 1 tablet as directed. 5. Zocor 10 mg at bedtime. 6. Topiramate ER 1 capsule daily. 7. Verapamil 1 capsule daily. FOLLOWUP: She is to follow up with Dr. Marisa Black her primary care physician. She needs to call in the morning. Notify her of the events, and schedule a followup in the next 2 to 3 weeks. She has been instructed to return to the ER or call to be seen sooner for any syncope, dizziness, chest pain, palpitations, increasing shortness of breath, temperature greater than 101, any nausea, vomiting, diarrhea, constipation, black or bloody vomitus or stools, any hematuria, dysuria, frequency, urgency or for any questions or concerns that she may have. She is being discharged home in stable condition with family members. TIME SPENT: This is a greater than 30 minute discharge. Dictated by SUZANNE Pereira for Srinath Feldman MD cc: SUZANNE Pereira MD Alexis R. Penot, MD Bernice Swain, MD
--- NOTE | 2019-10-06 18:19 | DISCHARGE SUMMARY ---
ADMISSION DATE: 09/30/2019 DISCHARGE DATE: 10/05/2019 ADDENDUM: Patient seen and examined by myself. Full note dictated and discussed with nurse practitioner. On discharge, patient is awake, alert. She is in no distress. She should have finished her Tamiflu for her flu A positive. Blood culture, thankfully, was a contaminant and repeat has been negative. Patient is wheezing on exam, but she notes this is normal for her and her breathing is improving. States that she is feeling better and is asking to go home. Therefore, we will comply and discharge her home. She will continue breathing treatments and oxygen at home. cc: MD Denton White MD
== END 2019-10-05 13:24 | disposition home or self-care (01) | DRG 193 ==
LOC: P.ED 08:42 → SUATTDRO 13:07 → P.MEDSURG 13:07
PROVIDERS: ADMIT Internal Medicine; ATTEND Family Medicine